=== PATIENT | female | born 1960 | race Caucasian/White ===

== ENCOUNTER 2024-08-16 01:31 | Observation (INO) ==
--- NOTE | 2024-08-16 01:45 | ED.PDOC ---
General ED Provider: Dr. KOJO COLEMAN MD Chief Complaint: Palpitations Stated Complaint: Patient states she has a cardiology patient with history of hypertension and hypercholesterolemia complains of intermittent substernal chest pressure associated with irregular heartbeat and palpitations in the past several months. Patient complains symptoms tonight denies dyspnea, diaphoresis, patient states the substernal pain scale/stable EKG history of back. Denies fever, coughing, dyspnea. Patient states she has a cardiology evaluation next 3 days with Holter monitor placement. Time Seen by Provider: 08/16/24 01:42 Mode of Arrival: Walk-In Information Source: Patient Exam Limitations: Clinical condition Nursing and Triage Documentation Reviewed and Agree: Yes What is Opioid Naive?: *Opioid Naive implies the patient is not already taking opioids or not chronically receiving opioids on a daily basis. *PRN dosing is not "usually" associated with tolerance. *Patients are at higher risk of over-sedation and aspiration. What is Opioid Tolerant?: *Opioid Tolerance implies less than the expected response to an opioid. *Acquired tolerance is defined by the patient taking 60mg of oral morphine daily (or equianalgesic dose of another opioid) for 1 week or more. *Often associated with chronic pain. *May take more than usual dose to achieve desired pain control. Review of Systems Review Of Systems Constitutional: Reports No symptoms Eyes: Reports No symptoms Ears, Nose, Mouth, Throat: Reports No symptoms Respiratory: Reports No symptoms Cardiac: Reports Chest pain and Palpitations GI: Reports No symptoms : Reports No symptoms Musculoskeletal: Reports No symptoms Skin: Reports No symptoms Neurological: Reports No symptoms Endocrine: Reports No symptoms Hematologic/Lymphatic: Reports No symptoms PFSH Female Reproductive History Menstrual Hx Tubal Ligation: Yes Physical Exam Physical Exam Appearance: Reports Well-appearing Ill-appearing: None Pain Distress: Mild Eyes: Reports ION, EOMI and Conjunctiva clear ENT: Reports Ears normal, Nose normal and Oropharynx normal Neck: Supple Respiratory: Reports Airway patent, Breath sounds clear and Breath sounds equal Cardiovascular: Reports RRR, Pulses normal, No rub and No murmur GI/: Reports Soft, Nontender and No masses Musculoskeletal: Reports Normal strength, ROM intact and Edema (Bilateral trace pitting pretibial edema) Skin: Reports Warm and Dry Neurological: Reports Sensation intact, Motor intact, Reflexes intact, Cranial nerves intact, Alert and Oriented Psychiatric: Reports Affect appropriate Critical Care Note Critical Care Note Total Critical Care Time (mins): 0 Course Course 08/16/24 01:45 08/16/24 01:45 Orders, Labs, Meds: Lab Review 08/16/24 08/16/24 08/16/24 01:45 02:23 03:46 WBC 8.56 RBC 4.54 Hgb 14.1 Hct 43.5 MCV 95.8 MCH 31.1 H MCHC 32.4 RDW Coeff of Jomar 13.4 Plt Count 279 Immature Gran % (Auto) 0.1 Neut % (Auto) 43.6 Lymph % (Auto) 40.1 [place] % (Auto) 9.9 Eos % (Auto) 5.6 Baso % (Auto) 0.7 Neut # (Auto) 3.7 Lymph # (Auto) 3.4 [place] # (Auto) 0.9 Eos # (Auto) 0.5 Baso # (Auto) 0.1 Immature Gran # (Auto) 0.0 PT 9.6 INR 0.92 Sodium 138.0 Potassium 3.85 Chloride 102.2 Carbon Dioxide 28.1 Anion Gap 11.55 BUN 17.9 H Creatinine 0.80 Estimated GFR (MDRD) 72.00 BUN/Creatinine Ratio 22.37 Glucose 102.1 Calcium 9.68 Magnesium 1.87 Total Bilirubin 0.54 AST 30.3 ALT 17.9 Alkaline Phosphatase 77.8 Troponin I < 0.012 < 0.012 Total Protein 7.14 Albumin 4.36 Globulin 2.78 Albumin/Globulin Ratio 1.56 D-Dimer SARS CoV-2 RNA Rapid MINA Negative 08/16/24 Unknown WBC RBC Hgb Hct MCV MCH MCHC RDW Coeff of Jomar Plt Count Immature Gran % (Auto) Neut % (Auto) Lymph % (Auto) [place] % (Auto) Eos % (Auto) Baso % (Auto) Neut # (Auto) Lymph # (Auto) [place] # (Auto) Eos # (Auto) Baso # (Auto) Immature Gran # (Auto) PT INR Sodium Potassium Chloride Carbon Dioxide Anion Gap BUN Creatinine Estimated GFR (MDRD) BUN/Creatinine Ratio Glucose Calcium Magnesium Total Bilirubin AST ALT Alkaline Phosphatase Troponin I Total Protein Albumin Globulin Albumin/Globulin Ratio D-Dimer 764.70 H SARS CoV-2 RNA Rapid MINA Orders Category Date Time Status EKG-(ED ONLY) Stat CARDIO 08/16/24 01:45 Completed EKG-(ED ONLY) Stat CARDIO 08/16/24 03:46 Completed NPO REMINDER: IMAGING ONCE CARE 08/16/24 02:41 Completed Geothermal Installer [ED DEPARTMENT [employer] OR [employer] APPLIED] .ONCE EMERGENCY 08/16/24 01:45 Active CBC W/ AUTO DIFF Stat LAB 08/16/24 01:45 Completed CMP [COMPREHENSIVE METABOLIC PANEL] Stat LAB 08/16/24 01:45 Completed D-DIMER Stat LAB 08/16/24 Completed MAGNESIUM Stat LAB 08/16/24 01:45 Completed PT WITH INR Stat LAB 08/16/24 01:45 Completed SARS COV-2 RNA RAPID MINA Stat LAB 08/16/24 02:23 Completed TROPONIN I Stat LAB 08/16/24 01:45 Completed TROPONIN I Stat LAB 08/16/24 03:46 Completed Aspirin [Aspirin Chewable] Meds 08/16/24 01:45 Discontinued 324 mg PO ONCE STA Clonidine HCl [Catapres] Meds 08/16/24 03:39 Discontinued 0.1 mg PO ONCE ONE Metoprolol Tartrate [Lopressor] Meds 08/16/24 04:25 Discontinued 2.5 mg IVP ONCE STA Nitroglycerin [Nitrostat] Meds 08/16/24 01:45 Active 0.4 mg SL Q5MIN X 3 DOSES PRN Ondansetron HCl/Pf [Zofran 4 mg/2 ml] Meds 08/16/24 04:26 Discontinued 4 mg IVP ONCE STA Sodium Chloride 0.9% [Sodium Chloride] 1,000 ml Meds 08/16/24 01:45 Active IV 100 mls/hr CHEST, 1V AP ONLY Stat RADS 08/16/24 01:45 Completed CTA CHEST PE PROTOCOL Stat RADS 08/16/24 02:41 Completed Medications Generic Name Dose Route Start Last Admin Trade Name Freq PRN Reason Stop Dose Admin Sodium Chloride 1,000 mls @ 100 mls/hr 08/16/24 01:45 08/16/24 01:58 Sodium Chloride IV 08/16/24 11:44 100 mls/hr .Q10H ONE Administration Nitroglycerin 0.4 mg 08/16/24 01:45 08/16/24 02:25 Nitroglycerin 0.4 Mg Tab.Subl SL 0.4 mg Q5MIN X 3 DOSES PRN Administration Chest Pain Discontinued Medications Generic Name Dose Route Start Last Admin Trade Name Freq PRN Reason Stop Dose Admin Aspirin 324 mg 08/16/24 01:45 08/16/24 01:56 Aspirin 81 Mg Tab.Chew PO 08/16/24 01:46 324 mg ONCE STA Administration Clonidine 0.1 mg 08/16/24 03:39 08/16/24 03:44 Clonidine Hcl 0.1 Mg Tablet PO 08/16/24 03:40 0.1 mg ONCE ONE Administration Metoprolol Tartrate 2.5 mg 08/16/24 04:25 08/16/24 04:32 Metoprolol Tartrate 5 Mg/5 Ml Vial IVP 08/16/24 04:26 2.5 mg ONCE STA Administration Ondansetron HCl 4 mg 08/16/24 04:26 08/16/24 04:31 Ondansetron Hcl/Pf 4 Mg/2 Ml Sdv IVP 08/16/24 04:27 4 mg ONCE STA Administration Vital Signs: Temp Pulse Resp BP Pulse Ox 08/16/24 01:35 97.2 F L 72 16 182/96 H 94 L MADELYN Risk Score Age >/= 65: Yes >/= 3 CAD Risk Factors: Yes Known CAD (Stenosis >/= 50%): No ASA Use in Past 7 Days: No Severe Angina (>/= 2 episodes in 24 hours): No EKG ST Changes >/= 0.5mm: No Postive Cardiac Marker: No MADELYN Total Score: 2 MADELYN Risk Score: Risk Score Odds of by 30D 0 0.1 (0.1-0.2) 1 0.3 (0.2-0.3) 2 0.4 (0.3-0.5) 3 0.7 (0.6-0.9) 4 1.2 (1.0-1.5) 5 2.2 (1.9-2.6) 6 3.0 (2.5-3.6) 7 4.8 (3.8-6.1) Physician Progress Note: History obtained from patient with history of hypertension, hypercholesterolemia complains of intermittent substernal pressure associated with palpitations over the past few months. Waking from sleep tonight with palpitation chest pain pain scale pressure/10. States medication pain does radiate to her back. Denies dyspnea, diaphoresis, cough, fever, chills. Patient states she has a scheduled appointment for eeg tech within the next 3 days for evaluation Holter monitor placement. Patient is a 1 pack/day smoker for past 45 years. 0140-EKG interpretation by myself consistent with normal sinus rhythm rate 65 with occasional PVC. There is no ischemic changes there is no prolongation of AL QT interval. Patient administered baby aspirin 320 mg orally and nitroglycerin sublingual 0.4 mg x 2 dose with marked improvement pain discomfort. Clonidine 0.1 mg for blood pressure 160/71 Laboratory data reviewed CBC, CMP, D-dimer, troponin, are all within normal limit except for D-dimer of 764. Portable chest x-ray interpretation per radiologist with no acute cardiopulmonary process 0353-repeat EKG interpretation from myself are consistent with normal sinus rhythm rate of 65 with occasional PVC. There is no ischemic changes. CTA PE protocol IV contrast interpretation per radiologist is consistent with no evidence of pulmonary embolism there is cardiomegaly there is bibasilar dependent atelectasis. 0346-repeat troponin less than 0.012 Patient given Lopressor 2.5 mg IVP Differential diagnosis: 1)Acute Chest Pain 2) palpitations Discussed with the hospitalist Poncho Barraza at 0445 for observation Discharge Plan Discharge Patient Disposition: PLACED OBSERVATION Discharge Problem: Acute chest pain, Palpitations Prescriptions: No Action atorvastatin 20 mg tablet 20 mg PO DAILY citalopram 40 mg tablet 40 mg PO DAILY lisinopril 30 mg tablet 30 mg PO DAILY Did you review [place] [employer] [employer] for ALL controlled substances?: Not Applicable ED Provider: KOJO COLEMAN Condition: Stable
[2024-08-16] MEDS: ASPIRIN CHEWABLE PO STA (01:56)
[2024-08-16] MEDS: NITROSTAT SL PRN (01:57)
[2024-08-16] MEDS: SODIUM CHLORIDE 1,000 ML IV ONE (01:58)
[2024-08-16 02:03] LABS: ALANINE AMINOTRANSFERASE 17.9 U/L (0-35); ALBUMIN 4.36 g/dL (3.5-5.0); ALKALINE PHOSPHATASE 77.8 U/L (53-141); ASPARTATE AMINO TRANSFERASE 30.3 U/L (14-36); BILIRUBIN,TOTAL 0.54 mg/dL (0.2-1.3); BLOOD UREA NITROGEN 17.9 mg/dL (7-17); CALCIUM 9.68 mg/dL (8.4-10.2); CARBON DIOXIDE 28.1 mmol/L (22-30.0); CHLORIDE 102.2 mmol/L (98-107); GLUCOSE 102.1 mg/dL (74-106); MAGNESIUM 1.87 mg/dL (1.6-2.3); POTASSIUM 3.85 mmol/L (3.5-5.1); TOTAL PROTEIN 7.14 g/dL (6.3-8.2)
[2024-08-16 02:04] LABS: PROTHROMBIN TIME 9.6 SEC (9.3-11.0)
[2024-08-16 02:07] LABS: BASOPHILS # (AUTO) 0.1 K/uL (0-0.2); BASOPHILS % (AUTO) 0.7 % (0.0-3.0); EOSINOPHILS # (AUTO) 0.5 K/ul (0.0-0.7); EOSINOPHILS % (AUTO) 5.6 % (0.0-7.0); HEMATOCRIT 43.5 % (37.0-47.0); HEMOGLOBIN 14.1 g/dl (12.0-16.0); IMMATURE GRANULOCYTE % (AUTO) 0.1 % (0.0-5.0); LYMPHOCYTES # (AUTO) 3.4 K/uL (0.60-3.4); LYMPHOCYTES % (AUTO) 40.1 (10.0-50.0); MEAN CORPUSCULAR HEMOGLOBIN 31.1 pg (27.0-31.0); MEAN CORPUSCULAR HGB CONC 32.4 (31.8-35.4); MEAN CORPUSCULAR VOLUME 95.8 fl (81.0-99.0); MONOCYTES # (AUTO) 0.9 K/uL (0.4-2.0); MONOCYTES % (AUTO) 9.9 (0-10); NEUTROPHILS # (AUTO) 3.7 K/ul (2.0-6.9); NEUTROPHILS % (AUTO) 43.6 % (42.2-75.2); PLATELET COUNT 279 10^3/uL (140-440); RDW COEFFICIENT OF VARIATION 13.4 % (11.6-14.8); RED BLOOD COUNT 4.54 10^6/ul (4.20-5.40); WHITE BLOOD COUNT 8.56 K/ul (4.6-10.2)
[2024-08-16 02:15] LABS: TROPONIN I < 0.012 ng/ml (0.0000-0.120)
[2024-08-16 02:38] LABS: SARS COV-2 RNA RAPID NAAT NEGATIVE (NEGATIVE)
--- NOTE | 2024-08-16 03:21 | DI ---
EXAM: SINGLE VIEW OF THE CHEST. History: Dyspnea. FINDINGS: Heart size is normal. No consolidation. No pleural fluid and no pneumothorax. No acute osseous abnormalities. Impression: No acute cardiopulmonary process
[2024-08-16] MEDS: CATAPRES PO ONE (03:44)
--- NOTE | 2024-08-16 03:52 | CT ---
EXAM: CT PULMONARY ANGIOGRAM WITH IV CONTRAST. HISTORY: Dyspnea. Elevated D-dimer. PROCEDURE: After the intravenous injection of contrast a CT pulmonary angiogram was performed with c ontiguous axial CT images of the chest with multiplaner reformats, MIP images and 3-D reformats. COMPARISON: None. FINDINGS: There is normal enhancement of the pulmonary arteries with no evidence of pulmonary emboli sm. The heart is enlarged. The thoracic aorta is within normal limits in size. There are atheroscl erotic calcifications in the thoracic aorta and coronary artery calcifications. There is bibasilar d ependent atelectasis. There are degenerative changes in the spine. Impression: No evidence of pulmonary embolism. Bibasilar dependent atelectasis. Cardiomegaly. All CT scans are performed using dose optimization techniques as appropriate to the performed exam an d include at least one of the following: Automated exposure control, adjustment of the mA and/or kV according t o size, and the use of iterative reconstruction technique.
[2024-08-16] MEDS: ZOFRAN 4 MG/2 ML IVP STA (04:31)
[2024-08-16] MEDS: LOPRESSOR IVP STA (04:32)
[2024-08-16] MEDS ORDERED: NITROSTAT SL PRN ×2 (04:51→05:40)
[2024-08-16] MEDS ORDERED: SODIUM CHLORIDE 1,000 ML IV SCH (06:00)
[2024-08-16 06:18] VITALS: BMI 36.8
[2024-08-16] MEDS: SODIUM CHLORIDE 1,000 ML IV SCH (07:48)
[2024-08-16 08:37] LABS: CHOLESTEROL 136.5 mg/dL (0-200); HDL CHOLESTEROL 44.3 mg/dL (35-80); TRIGLYCERIDES 49.4 mg/dL (0-150)
[2024-08-16 09:09] LABS: THYROID STIMULATING HORMONE 2.52 uIU/L (0.465-4.68)
[2024-08-16] MEDS: ZESTRIL PO SCH (09:27)
[2024-08-16] MEDS: TOPROL XL PO SCH (09:28)
[2024-08-16] MEDS: ZESTRIL PO ONE (09:36)
--- NOTE | 2024-08-16 13:36 | PCM ---
Date of Service Date Seen by Provider: 08/16/24 Time Seen by Provider: 09:00 Admit Day/Time Admission Date: 08/16/24 Admission Time: 05:00 Reason for Admission Chief Complaint: CHEST PAIN,PALPITATIONS Hospital Provider Hospital Provider[facility] History of Present Illness History of Present Illness: 64-year-old female with past medical history of hyperlipidemia hypertension and active smoker presents to the ER with chest pain and palpitations that has been ongoing for the past 3 to 4 months. Reports that she initially thought it was anxiety or stress related due to factors in family. States that over the last week or so they have gotten worse. Palpitations are accompanied by shortness of breath, dizziness, chest pressure, and fatigue. States that she most recently mention these problems to her regular doctor and was scheduled for a stress echo and a 24-hour Holter monitor to be placed this Wednesday. Patient describes palpitations as a fluttering in her chest that is intermittent sometimes worse than others. Troponins x 2 negative. EKG in ER with sinus rhythm at a rate of 60. On telemetry he developed ectopy and frequent PVCs. Admitted to Med/Surg observation Case Discussed With Case Discussed With: Patient's case was discussed with the ER Physicians, . [facility] Medical History Arthritis Knees M19.90 - Unspecified osteoarthritis, unspecified site (ICD-10) Surgical History H/O tubal ligation Z98.51 - Tubal ligation status (ICD-10) Family History Mother CHF (congestive heart failure) Social History Smoking and tobacco status: Current every day smoker Tobacco: How many years used: 38 Quit status: not considering quitting Allergies Allergies Allergy/AdvReac Type Severity Reaction Status Date / Time No Known Allergies Allergy Unverified 08/16/24 01:37 Current Medications Home Medications atorvastatin 20 mg tablet 20 mg PO DAILY 08/16/24 [History Confirmed 08/16/24 Last Taken 08/15/24] citalopram 40 mg tablet 40 mg PO DAILY 08/16/24 [History Confirmed 08/16/24 Last Taken 08/15/24] lisinopril 30 mg tablet 30 mg PO DAILY 08/16/24 [History Confirmed 08/16/24 Last Taken 08/15/24] Home Lisinopril (Lisinopril 10 Mg Tablet) 30 mg PO DAILY [facility] Last Admin: 08/16/24 09:27 Dose: 30 mg Metoprolol Succinate (Metoprolol Succinate 25 Mg Tab.Er.24h) 25 mg PO DAILY [facility] Last Admin: 08/16/24 09:28 Dose: 25 mg Nitroglycerin (Nitroglycerin 0.4 Mg Tab.Subl) 0.4 mg SL Q5MIN X 3 DOSES PRN PRN Reason: Chest Pain Last Admin: 08/16/24 02:25 Dose: 0.4 mg Discontinued Medications Aspirin (Aspirin 81 Mg Tab.Chew) 324 mg PO ONCE STA Stop: 08/16/24 01:46 Last Admin: 08/16/24 01:56 Dose: 324 mg Clonidine (Clonidine Hcl 0.1 Mg Tablet) 0.1 mg PO ONCE ONE Stop: 08/16/24 03:40 Last Admin: 08/16/24 03:44 Dose: 0.1 mg Sodium Chloride (Sodium Chloride) 1,000 mls @ 100 mls/hr IV .Q10H ONE Stop: 08/16/24 11:44 Last Infusion: 08/16/24 10:17 Dose: Infused Sodium Chloride (Sodium Chloride) 1,000 mls @ 30 mls/hr IV .[id number] [facility] Last Admin: 08/16/24 07:48 Dose: Not Given Lisinopril (Lisinopril 40 Mg Tablet) 40 mg PO ONCE ONE Stop: 08/16/24 04:52 Last Admin: 08/16/24 09:36 Dose: Not Given Metoprolol Tartrate (Metoprolol Tartrate 5 Mg/5 Ml Vial) 2.5 mg IVP ONCE STA Stop: 08/16/24 04:26 Last Admin: 08/16/24 04:32 Dose: 2.5 mg Nitroglycerin (Nitroglycerin 0.4 Mg Tab.Subl) 0.4 mg SL Q5MIN X 3 DOSES PRN PRN Reason: Chest Pain Ondansetron HCl (Ondansetron Hcl/Pf 4 Mg/2 Ml Sdv) 4 mg IVP ONCE STA Stop: 08/16/24 04:27 Last Admin: 08/16/24 04:31 Dose: 4 mg Opioid Naive vs. Tolerant Does Patient Take Opioids?: No Is Patient Opioid Naive?: Yes What is Opioid Naive?: *Opioid Naive implies the patient is not already taking opioids or not chronically receiving opioids on a daily basis. *PRN dosing is not "usually" associated with tolerance. *Patients are at higher risk of over-sedation and aspiration. Is Patient Opioid Tolerant?: No What is Opioid Tolerant?: *Opioid Tolerance implies less than the expected response to an opioid. *Acquired tolerance is defined by the patient taking 60mg of oral morphine daily (or equianalgesic dose of another opioid) for 1 week or more. *Often associated with chronic pain. *May take more than usual dose to achieve desired pain control. Review of Systems Constitutional: Reports Fatigue Head: Reports Normocephalic Eyes: Reports No symptoms Ears: Reports No symptoms Nose: Reports No symptoms Mouth: Reports No symptoms Throat: Reports No symptoms Cardiovascular: Reports Chest Pressure, Irregular Heartbeat and Palpitations Respiratory: Reports Shortness of air Gastrointestinal: Reports No symptoms Genitourinary: Reports No Symptoms Musculoskeletal: Reports No symptoms Endocrine: Reports No symptoms Hematology: Reports No symptoms Immunology: Reports No symptoms Neurological: Reports No symptoms Psychiatric: Reports No symptoms Physical examination Most Recent Vital Signs: Most Recent Vital Signs Temperature 98 F 08/16/24 06:00 Temperature Source Oral 08/16/24 06:00 Temperature Source Infrared 08/16/24 01:35 Pulse Rate 53 L 08/16/24 10:00 Respiratory Rate 18 08/16/24 10:00 Blood Pressure 127/61 08/16/24 10:00 Blood Pressure Mean 83 08/16/24 10:00 Blood Pressure Location Left Arm 08/16/24 10:00 Blood Pressure Position Sitting 08/16/24 10:00 O2 Sat by Pulse Oximetry 95 08/16/24 10:00 Oxygen Delivery Method Room Air 08/16/24 11:00 Oxygen Flow Rate 2 08/16/24 09:53 Height 5 ft 2 in 08/16/24 05:19 Weight 91.5 kg 08/16/24 05:19 Telemetry Type Bedside Monitor 08/16/24 07:00 Telemetry Monitoring Continues 08/16/24 07:00 Telemetry Heart Rate 67 08/16/24 07:00 Telemetry SPO2 99 08/16/24 07:00 EKG CO Interval 0.19 08/16/24 07:00 EKG QRS Interval 0.08 08/16/24 07:00 Telemetry Strip Reading SR w/ freq PVCs/bigeminal 08/16/24 07:00 Appearance: Positive No Apparent Distress and Alert and Oriented x3 Skin: Positive Warm and Good Turgor HEENT: Positive Normocephalic and PERRLA Neck: Positive Supple and Midline Trachea Chest/Lungs: Positive Symmetrical With Equal Breath Sounds, Clear to Auscultation Bilaterally and Good Air Movement all 4 Lung [place] Heart: Positive Pulses Normal and Irregular Rhythm GI/: Positive Soft, Nontender, Bowel Sounds Normal and No Distention Musculoskeletal: Positive Not Examined Extremities: Positive Intact Peripheral Pulses, Stable Joints Without Laxity and Good ROM in All Joints Neurological: Positive Sensation Intact, Motor intact, Alert, Oriented and Muscle Strength 5/5 in Upper and Lower Extremities Bilaterally Psychiatric: Positive Oriented x4 Labs This Visit Labs This Visit: Labs This Visit 08/16/24 08/16/24 08/16/24 01:45 02:23 03:46 WBC 8.56 RBC 4.54 Hgb 14.1 Hct 43.5 MCV 95.8 MCH 31.1 H MCHC 32.4 RDW Coeff of Jomar 13.4 Plt Count 279 Immature Gran % (Auto) 0.1 Neut % (Auto) 43.6 Lymph % (Auto) 40.1 [place] % (Auto) 9.9 Eos % (Auto) 5.6 Baso % (Auto) 0.7 Neut # (Auto) 3.7 Lymph # (Auto) 3.4 [place] # (Auto) 0.9 Eos # (Auto) 0.5 Baso # (Auto) 0.1 Immature Gran # (Auto) 0.0 PT 9.6 INR 0.92 Sodium 138.0 Potassium 3.85 Chloride 102.2 Carbon Dioxide 28.1 Anion Gap 11.55 BUN 17.9 H Creatinine 0.80 Estimated GFR (MDRD) 72.00 BUN/Creatinine Ratio 22.37 Glucose 102.1 Calcium 9.68 Magnesium 1.87 Total Bilirubin 0.54 AST 30.3 ALT 17.9 Alkaline Phosphatase 77.8 Troponin I < 0.012 < 0.012 Total Protein 7.14 Albumin 4.36 Globulin 2.78 Albumin/Globulin Ratio 1.56 Triglycerides Cholesterol LDL Cholesterol, Calc VLDL Cholesterol HDL Cholesterol Cholesterol/HDL Ratio TSH D-Dimer SARS CoV-2 RNA Rapid MINA Negative 08/16/24 08/16/24 07:01 Unknown WBC RBC Hgb Hct MCV MCH MCHC RDW Coeff of Jomar Plt Count Immature Gran % (Auto) Neut % (Auto) Lymph % (Auto) [place] % (Auto) Eos % (Auto) Baso % (Auto) Neut # (Auto) Lymph # (Auto) [place] # (Auto) Eos # (Auto) Baso # (Auto) Immature Gran # (Auto) PT INR Sodium Potassium Chloride Carbon Dioxide Anion Gap BUN Creatinine Estimated GFR (MDRD) BUN/Creatinine Ratio Glucose Calcium Magnesium Total Bilirubin AST ALT Alkaline Phosphatase Troponin I < 0.012 Total Protein Albumin Globulin Albumin/Globulin Ratio Triglycerides 49.4 Cholesterol 136.5 LDL Cholesterol, Calc 82 VLDL Cholesterol 10 HDL Cholesterol 44.3 Cholesterol/HDL Ratio 3.1 L TSH 2.520 D-Dimer 764.70 H SARS CoV-2 RNA Rapid MINA Imaging Imaging: EXAM: CT PULMONARY ANGIOGRAM WITH IV CONTRAST. HISTORY: Dyspnea. Elevated D-dimer. PROCEDURE: After the intravenous injection of contrast a CT pulmonary angiogram was performed with contiguous axial CT images of the chest with multiplaner reformats, MIP images and 3-D reformats. COMPARISON: None. FINDINGS: There is normal enhancement of the pulmonary arteries with no evidence of pulmonary embolism. The heart is enlarged. The thoracic aorta is within normal limits in size. There are atherosclerotic calcifications in the thoracic aorta and coronary artery calcifications. There is bibasilar dependent atelectasis. There are degenerative changes in the spine. Impression: No evidence of pulmonary embolism. Bibasilar dependent atelectasis. Cardiomegaly. EKG Interpretation EKG Interpretation: Sinus rhythm rate of 60, no acute changes Review Statement Review Statement: I have independently reviewed and interpreted the labs/EKGs/imaging that were ordered by the ER provider. I have reviewed all outside records that are available currently in our EMR including imaging/notes/labs from previous visits. Plan Plan: 1. Chest pain/Palpitations - troponin negative x 3, lipid panel within normal limits, stress echo ordered and awaiting insurance approval, will order 2 week holter monitor upon discharge, start on metoprolol succinate 25 mg daily, refer to Cardiology 2. Hypertension - chronic, stable, continue home medications 3. Hyperlipidemia - chronic, stable, continue home medications 4. Anxiety - chronic, continue home medications DVT Prophylaxis: Ambulation Time Spent: Greater than 80 minutes spent with patient, 50% of the time spent with this patient was devoted to counseling and coordination of care. [facility] Plannin minutes spent discussing advance care planning. Smoking Cessation: 3-10 minutes spent discussing smoking cessation. Disposition: Admit to: Med/surg Observation Full Code Discussed Plan of Care with Dr. Yong Mckeon. Medications Medication Orders: Medications Ordered Category Date Time Status Lisinopril [Zestril] Meds 08/16/24 09:00 Active 30 mg PO DAILY Metoprolol Succinate [Toprol Xl] Meds 08/16/24 07:00 Active 25 mg PO DAILY Nitroglycerin [Nitrostat] Meds 08/16/24 01:45 Active 0.4 mg SL Q5MIN X 3 DOSES PRN
[2024-08-16] MEDS: TYLENOL PO PRN (20:52)
[2024-08-17 05:32] LABS: BASOPHILS # (AUTO) 0.1 K/uL (0-0.2); BASOPHILS % (AUTO) 0.9 % (0.0-3.0); EOSINOPHILS # (AUTO) 0.4 K/ul (0.0-0.7); HEMATOCRIT 40.7 % (37.0-47.0); HEMOGLOBIN 12.9 g/dl (12.0-16.0); IMMATURE GRANULOCYTE % (AUTO) 0.1 % (0.0-5.0); LYMPHOCYTES # (AUTO) 2.2 K/uL (0.60-3.4); LYMPHOCYTES % (AUTO) 31.1 (10.0-50.0); MEAN CORPUSCULAR HEMOGLOBIN 30.8 pg (27.0-31.0); MEAN CORPUSCULAR HGB CONC 31.7 (31.8-35.4); MEAN CORPUSCULAR VOLUME 97.1 fl (81.0-99.0); MONOCYTES # (AUTO) 0.8 K/uL (0.4-2.0); MONOCYTES % (AUTO) 10.7 (0-10); NEUTROPHILS # (AUTO) 3.6 K/ul (2.0-6.9); NEUTROPHILS % (AUTO) 51.2 % (42.2-75.2); PLATELET COUNT 245 10^3/uL (140-440); RDW COEFFICIENT OF VARIATION 13.8 % (11.6-14.8); RED BLOOD COUNT 4.19 10^6/ul (4.20-5.40); WHITE BLOOD COUNT 7.04 K/ul (4.6-10.2)
[2024-08-17 05:49] LABS: ALANINE AMINOTRANSFERASE 15.5 U/L (0-35); ALBUMIN 3.59 g/dL (3.5-5.0); ASPARTATE AMINO TRANSFERASE 31.2 U/L (14-36); BILIRUBIN,TOTAL 0.44 mg/dL (0.2-1.3); CALCIUM 8.7 mg/dL (8.4-10.2); CARBON DIOXIDE 30.7 mmol/L (22-30.0); CHLORIDE 105.6 mmol/L (98-107); CREATININE 0.77 mg/dL (0.60-1.30); GLUCOSE 87.7 mg/dL (74-106); POTASSIUM 4.21 mmol/L (3.5-5.1); SODIUM 138.5 mmol/L (134.5-145); TOTAL PROTEIN 6.05 g/dL (6.3-8.2)
[2024-08-17] MEDS: TOPROL XL PO SCH (08:05)
[2024-08-17] MEDS ORDERED: LIPITOR PO SCH (10:00)
[2024-08-17] MEDS ORDERED: CELEXA PO SCH (10:00)
[2024-08-17 10:08] VITALS: BP 124/63; PULSE 46; RESP 12; TEMP 97.9
--- NOTE | 2024-08-17 11:19 | DCSUM ---
Admission Date Admission Date: 08/16/24 Discharge Date Discharge Date: 08/17/24 Admission Diagnosis Admission Diagnosis: 1. Chest pain/Palpitations 2. Hypertension 3. Hyperlipidemia 4. Anxiety Discharge Diagnosis Discharge Diagnosis: 1. Chest pain/Palpitations - Improving 2. Hypertension - chronic, stable 3. Hyperlipidemia - chronic, stable 4. Anxiety - chronic, stable Hospital Provider Hospital Provider: ALVARADO ORNELAS, [facility] Summary of History and Physical Summary of History and Physical: 64-year-old female with past medical history of hyperlipidemia hypertension and active smoker presents to the ER with chest pain and palpitations that has been ongoing for the past 3 to 4 months. Reports that she initially thought it was anxiety or stress related due to factors in family. States that over the last week or so they have gotten worse. Palpitations are accompanied by shortness of breath, dizziness, chest pressure, and fatigue. States that she most recently mention these problems to her regular doctor and was scheduled for a stress echo and a 24-hour Holter monitor to be placed this Wednesday. Patient describes palpitations as a fluttering in her chest that is intermittent sometimes worse than others. Troponins x 2 negative. EKG in ER with sinus rhythm at a rate of 60. On telemetry he developed ectopy and frequent PVCs. Admitted to Med/Surg observation Hospital Course Subjective: Troponins negative x 3. Lipid panel within normal limits. Stress echo was ordered but patient unable to complete on treadmill due to hip. Has scheduled dobutamine stress test at [facility] tomorrow. 14 Day Holter monitor applied prior to discharge. Attempted metoprolol 25 mg initially on admission, HR dropped to low into 40s. Cut dose in half and HR still dropping to 40s. Symptoms have resolved and no further PVCs noted on telemetry. Cardiology referral sent and will contact for appointment. Patient voiced that over the past year or so this cough she has is continuing to worsen. Has had it since she started taking lisinopril. Switched to losartan/HCTZ. Follow-up with PCP in next couple weeks. Appearance: Pleasant, No Apparent Distress and Alert HEENT: MMM and Supple CVS: No Murmur Abdomen: Soft, Non-Tender and No Distention Respiratory: No Dyspnea Extremities: No Edema Vital Signs: Most Recent Vital Signs Temperature 97.9 F 08/17/24 10:00 Temperature Source Temporal Artery Scan 08/17/24 10:00 Temperature Source Infrared 08/16/24 01:35 Pulse Rate 46 L 08/17/24 10:00 Respiratory Rate 12 08/17/24 10:00 Blood Pressure 124/63 08/17/24 10:00 Blood Pressure Mean 83 08/17/24 10:00 Blood Pressure Location Left Arm 08/17/24 10:00 Blood Pressure Position Supine 08/17/24 10:00 O2 Sat by Pulse Oximetry 95 08/17/24 10:00 Oxygen Delivery Method Nasal Cannula 08/17/24 10:00 Oxygen Flow Rate 2 08/17/24 10:00 Height 5 ft 2 in 08/16/24 05:19 Weight 91.5 kg 08/16/24 05:19 Telemetry Type Remote Telemetry 08/17/24 07:00 Telemetry Monitoring Continues 08/17/24 07:00 Telemetry Heart Rate 46 L 08/17/24 07:00 Telemetry SPO2 99 08/16/24 07:00 EKG NJ Interval 0.19 08/17/24 07:00 EKG QRS Interval 0.08 08/17/24 07:00 Telemetry Strip Reading Sinus Julio C 08/17/24 07:00 Imaging: EXAM: CT PULMONARY ANGIOGRAM WITH IV CONTRAST. HISTORY: Dyspnea. Elevated D-dimer. PROCEDURE: After the intravenous injection of contrast a CT pulmonary angiogram was performed with contiguous axial CT images of the chest with multiplaner reformats, MIP images and 3-D reformats. COMPARISON: None. FINDINGS: There is normal enhancement of the pulmonary arteries with no evidence of pulmonary embolism. The heart is enlarged. The thoracic aorta is within normal limits in size. There are atherosclerotic calcifications in the thoracic aorta and coronary artery calcifications. There is bibasilar dependent atelectasis. There are degenerative changes in the spine. Impression: No evidence of pulmonary embolism. Bibasilar dependent atelectasis. Cardiomegaly. Lab Results Last 24 Hours: 08/17/24 05:20 WBC 7.04 RBC 4.19 L Hgb 12.9 Hct 40.7 MCV 97.1 MCH 30.8 MCHC 31.7 L RDW Coeff of Jomar 13.8 Plt Count 245 Immature Gran % (Auto) 0.1 Neut % (Auto) 51.2 Lymph % (Auto) 31.1 Burt % (Auto) 10.7 H Eos % (Auto) 6.0 Baso % (Auto) 0.9 Neut # (Auto) 3.6 Lymph # (Auto) 2.2 Burt # (Auto) 0.8 Eos # (Auto) 0.4 Baso # (Auto) 0.1 Immature Gran # (Auto) 0.0 Sodium 138.5 Potassium 4.21 Chloride 105.6 Carbon Dioxide 30.7 H Anion Gap 6.41 BUN 20.0 H Creatinine 0.77 Estimated GFR (MDRD) 75.00 BUN/Creatinine Ratio 25.97 Glucose 87.7 Calcium 8.70 Total Bilirubin 0.44 AST 31.2 ALT 15.5 Alkaline Phosphatase 58.0 Total Protein 6.05 L Albumin 3.59 Globulin 2.46 Albumin/Globulin Ratio 1.45 Discharge Instructions Discharge Planning: Discharge Planning > 40 minutes If patient is discharged with left ventricular systolic dysfunction: NA Discharged with a beta chitra? [] If no, why not? [] Discharged with an fang/arb? [] If no, why not? [] Discharge Home today; July Diagnosis: Palpitations Diet: Cardiac Activity: as tolerated Follow-up with PCP Complete Stress Echo tomorrow at [facility] as scheduled. Wear Holter monitor for 14 days Medications: Albuterol inhaler - take 2 puffs every 4-6 hours as needed for shortness of breath Losartan/HCTZ 50/12.5, take 1 daily for hypertension Stop taking Lisinopril Continue other Home Medications as indicated Discharge Plan Discharge Discharge Orders: Discharge Patient (ONCE); Ordered 08/17/24 Ordered By: BEKAH LOVE Activity Restrictions/Additional Instructions: Discharge Home today; July Diagnosis: Palpitations Diet: Cardiac Activity: as tolerated Follow-up with PCP Complete Stress Echo tomorrow at [facility] as scheduled. Wear Holter monitor for 14 days Medications: Albuterol inhaler - take 2 puffs every 4-6 hours as needed for shortness of breath Losartan/HCTZ 50/12.5, take 1 daily for hypertension Stop taking Lisinopril Continue other Home Medications as indicated Instructions: Hydrochlorothiazide (By mouth), Albuterol (By breathing), Losartan/Hydrochlorothiazide (By mouth), Chest Pain (DC), Heart Palpitations (GEN), Premature Ventricular Contractions (GEN) Patient Disposition: HOME SELF-CARE Prescriptions: New losartan-hydrochlorothiazide 50-12.5 mg Tablet 1 tab PO DAILY Qty: 30 0RF albuterol sulfate 90 mcg/actuation aerosol powdr breath activated 2 inh inhalation Q4-6H PRN (Reason: shortness of breath or wheezing) Qty: 1 0RF Continued atorvastatin 20 mg tablet 20 mg PO DAILY citalopram 40 mg tablet 40 mg PO DAILY Discontinued lisinopril 30 mg tablet 30 mg PO DAILY Did you review [place] [employer] for ALL controlled substances?: No Discussed opioids are addictive and Narcan is available by prescription or from pharmacy.: No Condition: Stable Referrals: TRINY [facility] [REFERRING] - 09/01/24 8:30 am
[2024-08-18] MEDS ORDERED: HYZAAR 50-12.5 MG TAB PO SCH (09:00)
== END 2024-08-17 14:00 | disposition home or self-care (01) ==
LOC: ED 01:31 → SCU 01:31
PROVIDERS: ADMIT Hospitalist; ATTEND Nurse Practitioner Family
DX: Z51.81 Encounter for therapeutic drug level monitoring; I51.7 Cardiomegaly; R06.00 Dyspnea, unspecified; Z20.822 Contact with and (suspected) exposure to COVID-19; F17.210 Nicotine dependence, cigarettes, uncomplicated; F41.9 Anxiety disorder, unspecified; J98.11 Atelectasis; I10 Essential (primary) hypertension; R00.2 Palpitations; Z79.899 Other long term (current) drug therapy; R07.9 Chest pain, unspecified; E78.00 Pure hypercholesterolemia, unspecified